=== PATIENT | male | born 2000 | race Caucasian/White ===

== ENCOUNTER 2023-07-17 16:45 | Outpatient (CLI) | payer SELFPAY | END 2023-07-17 23:59 | disposition short-term general hospital (02) | LOC: EMS 16:45 | DX: S49.91XA Unspecified injury of right shoulder and upper arm, initial encounter (principal); V28.49XA Other motorcycle driver injured in noncollision transport accident in traffic accident, initial encounter; Y93.55 Activity, bike riding; Y92.413 State road as the place of occurrence of the external cause | CPT/HCPCS: A0425; A0427 ==